=== PATIENT | male | born 2000 ===

== ENCOUNTER 2021-11-01 12:17 | Emergency (ER) | payer SELFPAY ==
[2021-11-01 23:11] VITALS: BP 110/48
== END 2021-11-02 09:25 | disposition left against medical advice (07) ==
LOC: ED 12:17
DX: D57.219 Sickle-cell/Hb-C disease with crisis, unspecified (principal); Z53.21 Procedure and treatment not carried out due to patient leaving prior to being seen by health care provider

== ENCOUNTER 2021-11-01 21:29 | Emergency (ER) | payer SELFPAY ==
--- NOTE | 2021-11-01 23:52 | XRay Report ---
CHEST 1 VIEW INDICATION / CLINICAL INFORMATION: pain. Chest pain FINDINGS: SUPPORT DEVICES: Left-sided port noted. HEART / MEDIASTINUM: No significant abnormality. LUNGS / PLEURA: Linear densities scattered within the mid and lower lungs are probably chronic. No de finite acute airspace consolidation is identified. Signer Name: Gilmar Rogers MD Signed: 11/01/2021 11:48 PM Workstation Name: [email or web address]
[2021-11-02 00:07] LABS: Hematocrit 23.8 % (35.5-45.6); Hemoglobin 8.6 gm/dl (11.8-15.2); Mean Corpuscular HGB Conc 36 % (32-34); Mean Corpuscular Volume 87 fl (84-94); Platelet Count 238 K/mm3 (140-440); Red Blood Count 2.75 M/mm3 (3.65-5.03)
[2021-11-02 00:08] LABS: Red Cell Distribution Width 25.1 % (13.2-15.2)
[2021-11-02 00:23] LABS: Alanine Aminotransferase 13 units/L (7-56); Albumin 4.6 g/dL (3.9-5); Blood Urea Nitrogen 7 mg/dL (9-20); Hemolysis Index 73
[2021-11-02 00:45] LABS: Anisocytosis 2+; Eosinophils % (Manual) 0 % (0.0-4.3); Total Cells Counted 100; Toxic Vacuolation Few
[2021-11-02 00:46] LABS: Schistocytes 1+; Sickle Cells 3+
[2021-11-02 00:47] LABS: Platelet Estimate Consistent w Auto
[2021-11-02 00:57] LABS: BUN/Creatinine Ratio 18
== END 2021-11-02 09:24 | disposition left against medical advice (07) ==
LOC: ED 21:29
DX: D57.219 Sickle-cell/Hb-C disease with crisis, unspecified (principal); Z53.21 Procedure and treatment not carried out due to patient leaving prior to being seen by health care provider
CPT/HCPCS: 36415; 71045; 80053; 85007; 85025; 85045